=== PATIENT | female | born 1995 | race Caucasian/White ===

== ENCOUNTER 2020-12-06 08:03 | Outpatient (CLI) | payer MEDICAID ==
[~2020-12-06] VITALS: Ht 167.6 cm; Wt 111.6 kg
[~2020-12-06 08:03] MED LIST: PRENATAL TABLET PO
[2020-12-06 08:20] VITALS: BP 130/78; PULSE 63; TEMP 98.3
[2020-12-06 09:24] VITALS: BP 108/57; PULSE 54; PULSE 55
--- NOTE | 2020-12-06 09:28 | NUR ---
Pt arrived to [facility] via cart.Observed alert,orietnated x 3,respirations even and unlabored.Call light within [facility].
[2020-12-06 09:30] VITALS: BP 105/55; PULSE 53
[2020-12-06 09:45] VITALS: BP 111/58; PULSE 54
[2020-12-06 09:48] LABS: GLUCOSE,CSF 52 mg/dL (40-70); TOTAL PROTEIN,CSF 42 mg/dL (15-45)
[2020-12-06 10:00] VITALS: BP 112/58; PULSE 53
[2020-12-06 10:11] LABS: CSF POLYMORPHONUCLEAR 0 % (0-6)
[2020-12-06 10:12] LABS: CSF MONONUCLEAR 100 % (70-100)
--- NOTE | 2020-12-06 10:32 | NUR ---
Discharge instructions given to pt.Pt verbalizes understandig.Pt escorted out by this nurse.
[2020-12-06 11:58] LABS: CSF APPEARANCE CLEAR; CSF COLOR COLORLESS; CSF RBC 0 /mm3 (0-0)
== END 2020-12-06 10:34 | disposition home or self-care (01) ==
LOC: COL.RAD 08:03
PROVIDERS: Nurse Practitioner
DX: H47.10 Unspecified papilledema (principal)